=== PATIENT | female | born 1955 | race Two or more races ===

== ENCOUNTER 2024-08-21 19:19 | Inpatient (IN) | payer MEDICARE, SELFPAY ==
--- NOTE | 2024-08-21 19:30 | EKG_ITS ---
[facility] Test Date: 2024-08-21 Pat Name: ELENA MONROE Department: Room: - Gender: Female [employer]: : 1955 Requested By: ED Temporary Provider Order Number: [id number] Reading MD: ED Temporary Provider Measurements Intervals Marks Rate: 84 P: 51 CT: 108 QRS: 20 QRSD: 89 T: 58 QT: 390 QTc: 462 Interpretive Statements SINUS RHYTHM WITH SHORT CT INTERVAL No previous ECG available for comparison /store/S0/[id number]/ecg/[id number].pdf
[2024-08-21 19:44] VITALS: BP 159/83; PULSE 93; RESP 18; TEMP 36.9; O2SAT 95; BMI 36.7
--- NOTE | 2024-08-21 19:49 | XR_ITS ---
Examination: CT brain head without contrast. 2-D sagittal coronal reconstructions Date and time of exam:August 21, 2024 at 8:31 PM Comparison December 17, 2020 INDICATIONS: Stroke alert, onset focal neurologic deficit CTDI: vol (mGy):47 DLP: (mGycm):900 Technique: Multiple CT axial sections of the brain have been obtained, 5 mm slice thickness. Contrast has not been administered. 2-D sagittal, coronal reconstructions have been obtained Low dose protocols were performed. One or more of the following dose reduction techniques were used; automated exposure control, adjustment of the mA and/or KV according to patient size, use of iterative reconstruction technique. Findings: No significant ventricular enlargement. Intra-axial or extra-axial hemorrhage density is not seen. No mass effect or midline shift Basal cisterns are not remarkable. Fourth ventricle is midline. Cranial vault intact. Impression: Negative for acute hemorrhage, mass effect or midline shift I did not receive a telephone call on this study
--- NOTE | 2024-08-21 19:49 | XR_ITS ---
Examination: CTA carotids with intravenous contrast CTA brain, head with intravenous contrast. 2-D sagittal, coronal reconstructions. 3-D reconstructions. Exam date and time: September 17, 20242036 hours no examination time: September 17, 2024 at 203 hours INDICATIONS: Stroke alert altered mental status CTDI: vol (mGy) 10 DLP: (mGycm) 422 Technique: Multiple CTA axial brain, head carotid images post intravenous contrast injection 100 cc, Isovue-370. 2-D sagittal, coronal reconstructions. 3-D reconstructions, 3-D post processing including vascular maximum intensity projection images. Low dose protocols were performed. One or more of the following dose reduction techniques were used; automated exposure control, adjustment of the mA and/or KV according to patient size, use of iterative reconstruction technique. Findings: No significant common carotid carotid bifurcation internal carotid artery stenoses Dominant left vertebral artery in the neck with no critical stenoses Intracranial vertebral arteries artery posterior cerebral branches fill with no large vessel occlusions Juxtasellar internal carotid arteries M1 segment middle cerebral arteries middle cerebral artery trifurcation branches and anterior cerebral arteries fill with no occlusions IMPRESSION: No significant neck arterial stenoses No cerebral large vessel arterial occlusions or thrombus
--- NOTE | 2024-08-21 19:51 | EDRME_ITS ---
Rapid Medical Screening Exam [facility] Arrival date/time: 08/21/24 19:19 68F with history of HLD presents to ED with R-sided numbness and gait changes w/o fall/trauma. Patient states symptoms started around 1800 today. Patient was just sitting watching TV. Chief Complaint: General Adult/Misc Complain Vital signs: Vital Signs Temperature 98.4 F 08/21/24 19:44 Pulse Rate 93 08/21/24 19:44 Respiratory Rate 18 08/21/24 19:44 Blood Pressure 159/83 H 08/21/24 19:44 Pulse Oximetry (%) 95 08/21/24 19:44 Oxygen Delivery Method Room Air 08/21/24 19:44
[2024-08-21 20:19] LABS: Basophils % (Auto) 0 % (0-2.5); Eosinophils # (Auto) 0.2 Thou/mm3 (0.0-0.5); Eosinophils % (Auto) 2 % (0-10); Hematocrit 43.1 % (36.0-46.0); Hemoglobin 14.9 g/dL (12.0-16.0); Immature Granulocytes % (Auto) 0 % (0-0); Immature Granulocytes Auto 0.04 Thou/mm3 (0.00-0.00); Lymphocytes # (Auto) 3.5 Thou/mm3 (1.0-4.8); Lymphocytes % (Auto) 36 % (10-50); Mean Corpuscular HGB Conc 34.6 g/dl (31.0-37.0); Mean Corpuscular Volume 87 fL (80-100); Monocytes # (Auto) 0.7 Thou/mm3 (0.0-0.8); Monocytes % (Auto) 8 % (0-12); Neutrophils # (Auto) 5.1 Thou/mm3 (1.8-7.7); Neutrophils % (Auto) 53 % (37-80); Nucleated Red Blood Cell % 0 /100 WBC (0); Platelet Count 228 Thou/mm3 (140-440); RDW Standard Deviation 40.2 fL (36.4-46.3); Red Blood Count 4.97 Miln/mm3 (4.00-5.20); White Blood Count 9.6 Thou/mm3 (3.6-11.0)
[2024-08-21 20:20] LABS: Alanine Aminotransferase 24 U/L (10-49); Albumin, Serum 4.7 gm/dL (3.4-4.8); Albumin/Globulin Ratio 1.5 (1.2-2.2); Alkaline Phosphatase 148 U/L (46-116); Anion Gap 10 (7-16); Aspartate Amino Transferase 22 U/L (0-34); BUN/Creatinine Ratio 21 Ratio (12-20); Bilirubin,Total 0.6 mg/dL (0.3-1.2); Blood Urea Nitrogen 21 mg/dL (9-23); Calcium 9.9 mg/dL (8.3-10.6); Calcium (Corrected) 9.9 mg/dL (8.5-10.1); Carbon Dioxide 24.6 mMol/L (20.0-31.0); Chloride 108 mMol/L (98-107); Estimated Creatinine Clearance 52.9 mL/min (>60); Globulin 3.2 gm/dL (2.3-3.5); Glucose 111 mg/dL (74-106); Magnesium 2.2 mg/dL (1.6-2.6); Osmolality,Calculated 288 (275-295); Sodium 143 mMol/L (136-145); Total Protein 7.9 gm/dL (5.7-8.2); Troponin I < 0.020 ng/mL (0.0-0.045); eGFR > 60 See Note
--- NOTE | 2024-08-21 20:26 | EDNOTE_ITS ---
ED General RME/HPI General Chief complaint: General Adult/Misc Complain Stated complaint: RIGHT SIDE BODY NUMBNESS Time Seen by Provider: 08/21/24 20:34 Arrival date/time: 08/21/24 19:19 RME / HPI RME / HPI narrative: 08/21/24 19:19 68F with history of HLD presents to ED with R-sided numbness and gait changes w/o fall/trauma. Patient states symptoms started around 1800 today. Patient was just sitting watching TV. --------- Dr. Quintana?s Main ED Evaluation: 68yo female accompanied by her daughter presents to the ED for a chief complaint of right-sided facial numbness x 1800. Stroke alert initiated at 1947. Patient states she started having numbness to the right side of her face when she was watching TV. She reports it radiates down her right arm. She denies any recent falls or injuries. She denies any headache, dizziness, N/V or any other associated symptoms. No known allergies. Related Data Home Medications ?Medication ?Instructions ?Recorded ?Confirmed No Known Home Medications 12/17/2011/20 Allergies Allergy/AdvReac Type Severity Reaction Status Date / Time No Known Allergies Allergy Verified 12/17/20 00:13 Review of Systems Review of Systems Systems Reviewed: All systems reviewed, normal except as documented Past Medical History Past Medical History CARDIAC: Negative Congestive Heart Failure RESPIRATORY: Negative Chronic Obstructive Pulmonary Disease (COPD) GENITOURINARY: Negative Renal Disease ENDOCRINE: Negative Diabetes Mellitus Type 1 or Diabetes Mellitus Type 2 Social History SMOKING STATUS: Never smoker ED Exam Narrative Physical exam: GENERAL APPEARANCE: alert and oriented x 4, well-developed, well-nourished, no acute distress VITALS: All vitals were reviewed and the pulse ox is 95% on room air, which is normal according to my interpretation. HEENT: Normocephalic, atraumatic; pupils equal, round, reactive to light; EOMI; mucous membranes pink, moist; oropharynx clear NECK: Supple LUNGS: CTABL; no wheezes, no rales, no rhonchi HEART: Regular rate, regular rhythm; normal S1, S2; no murmurs ABDOMEN: non distended; normal BS; soft, no tenderness, no guarding, no rebound; no masses, no organomegaly, no hernia BACK: no CVA tenderness EXTREMITIES: atraumatic; no edema NEUROLOGIC: awake; alert and oriented x4; sensory deficits to the right face and arm; right facial droop PSYCHIATRIC: appropriate mood and affect SKIN: warm, dry, normal color; no rashes Course Quality Measures Suspected type of Stroke: Acute Ischemic Tenecteplase given: Reason(s) TPA not given: Stroke severity too mild (non-disabling) not given stroke Orders Category Date Time Status Bedside Blood Glucose NOW Care 08/21/24 19:49 Active Principal Technologist NOW Care 08/21/24 19:49 Active Continuous Pulse Oximetry NOW Care 08/21/24 19:49 Completed EKG (ED ONLY) *Do not use* NOW Care 08/21/24 19:30 Completed Fingerstick [Bedside Blood Glucose] NOW Care 08/21/24 19:28 Active In and Out Catheter NEEDED Care 08/21/24 19:49 Active Insert IV NOW Care 08/21/24 19:49 Active NIH Stroke Scale now Care 08/21/24 19:49 Active NPO NOW Care 08/21/24 19:49 Active Nurse Swallow Screen x1 Care 08/21/24 19:49 Active Consult to Neurology / Tele-Neurology Routine Cons 08/21/24 19:[address] angio stroke protocol Stat Exams 08/21/24 19:[address] stroke protocol Stat Exams 08/21/24 19:49 Completed EKG (ED Only) Stat Exams 08/21/24 19:30 Draft CBC Stat Lab 08/21/24 19:53 Completed Comprehensive Metabolic Panel Stat Lab 08/21/24 19:53 Completed Drug Screen,Urine Stat Lab 08/21/24 20:57 Completed Magnesium Stat Lab 08/21/24 19:53 Completed Partial Thromboplastin Time Stat Lab 08/21/24 19:53 Completed Prothrombin Time with INR Stat Lab 08/21/24 19:53 Completed Troponin I Stat Lab 08/21/24 19:53 Completed Urinalysis Stat Lab 08/21/24 20:57 Completed Urine Culture Stat Lab 08/21/24 20:57 Received Aspirin Med 08/21/24 21:23 Discontinued 325 mg PO X1 ONE Clopidogrel [Plavix] Med 08/21/24 21:23 Discontinued 75 mg PO X1 ONE Ondansetron Inj [Zofran Inj] Med 08/21/24 19:49 Active 4 mg IV Q4HR PRN Oxygen Delivery NOW RT 08/21/24 19:49 Active Vital Signs Vital signs: Vital Signs Temperature 98.4 F 08/21/24 19:44 Pulse Rate 93 08/21/24 19:44 Respiratory Rate 18 08/21/24 19:44 Blood Pressure 159/83 H 08/21/24 19:44 Pulse Oximetry (%) 95 08/21/24 19:44 Oxygen Delivery Method Room Air 08/21/24 19:44 [facility] Patient data External records reviewed:: [facility] previous records (Per chart review, patient was seen here on 12/17/20 for [facility].) Clinical information provided by:: patient Social determinants that could affect healthcare access:: none Patient has the following chronic illnesses:: none How is presenting disease/condition affected by chronic disease/condition?: no chronic disease Evaluation data The following diagnostics were reviewed and interpreted by me:: lab results, radiology exam(s) and EKG tracing(s) Lab and/or radiology exams considered but not ordered:: none Interpretation Summary: CBC is normal, PT and INR are normal, PTT is normal, troponin is normal, UA is unremarkable, UDS is negative, according to my interpretation. EKG done at 1941, NSR, rate of 84, normal axis, no ectopy, no acute ischemia, according to my interpretation. [facility] Report Signed Patient: ELENA MONROE Record#: [id number] Birthdate: 1955 Age/Sex: 68 / F Location: [facility] Attending Dr: Ordering Physician: Kali Jin PA-C Date of Service: 08/21/24 Procedure(s): CT stroke protocol Accession Number(s): [id number] cc: Garfield Rendon MD; Kali Jin PA-C~ Examination: CT brain head without contrast. 2-D sagittal coronal reconstructions Date and time of exam:August 21, 2024 at 8:31 PM Comparison December 17, 2020 INDICATIONS: Stroke alert, onset focal neurologic deficit CTDI: vol (mGy):47 DLP: (mGycm):900 Technique: Multiple CT axial sections of the brain have been obtained, 5 mm slice thickness. Contrast has not been administered. 2-D sagittal, coronal reconstructions have been obtained Low dose protocols were performed. One or more of the following dose reduction techniques were used; automated exposure control, adjustment of the mA and/or KV according to patient size, use of iterative reconstruction technique. Findings: No significant ventricular enlargement. Intra-axial or extra-axial hemorrhage density is not seen. No mass effect or midline shift Basal cisterns are not remarkable. Fourth ventricle is midline. Cranial vault intact. Impression: Negative for acute hemorrhage, mass effect or midline shift I did not receive a telephone call on this study Dictated By: Garfield Rendon MD Signed By: <Electronically signed by Garfield Rendon MD in OV> 08/21/242052 [facility] Report Signed Patient: ELENA MONROE Record#: [id number] Birthdate: 1955 Age/Sex: 68 / F Location: [facility] Attending Dr: Ordering Physician: Kali Jin PA-C Date of Service: 08/21/24 Procedure(s): CT angio stroke protocol Accession Number(s): [id number] cc: Garfield Rendon MD; NO PRIMARY/FAMILY,PHYSICIAN; Kali Jin PA-C~ Examination: CTA carotids with intravenous contrast CTA brain, head with intravenous contrast. 2-D sagittal, coronal reconstructions. 3-D reconstructions. Exam date and time: September 17, 20242036 hours no examination time: September 17, 2024 at 2037 hours INDICATIONS: Stroke alert altered mental status CTDI: vol (mGy) 10 DLP: (mGycm) 422 Technique: Multiple CTA axial brain, head carotid images post intravenous contrast injection 100 cc, Isovue-370. 2-D sagittal, coronal reconstructions. 3-D reconstructions, 3-D post processing including vascular maximum intensity projection images. Low dose protocols were performed. One or more of the following dose reduction techniques were used; automated exposure control, adjustment of the mA and/or KV according to patient size, use of iterative reconstruction technique. Findings: No significant common carotid carotid bifurcation internal carotid artery stenoses Dominant left vertebral artery in the neck with no critical stenoses Intracranial vertebral arteries artery posterior cerebral branches fill with no large vessel occlusions Juxtasellar internal carotid arteries M1 segment middle cerebral arteries middle cerebral artery trifurcation branches and anterior cerebral arteries fill with no occlusions IMPRESSION: No significant neck arterial stenoses No cerebral large vessel arterial occlusions or thrombus Dictated By: Garfield Rendon MD Signed By: <Electronically signed by Garfield Rendon MD in OV> 08/21/24 9779 Medications Medications considered but not ordered:: none Medication administrations:: Medication Administration History Ondansetron HCl (Ondansetron Inj 2 Mg/Ml Inj 2 Ml) 4 mg IV Q4HR PRN PRN Reason: NAUSEA OR VOMITING Stop: 09/20/24 19:48 Discontinued Medications Aspirin (Aspirin 325 Mg Tablet) 325 mg PO X1 ONE Stop: 08/21/24 21:24 Last Admin: 08/21/24 21:44 Dose: 325 mg Documented By: CB Clopidogrel Bisulfate (Clopidogrel Bisulfate 75 Mg Tablet) 75 mg PO X1 ONE Stop: 08/21/24 21:24 Last Admin: 08/21/24 21:44 Dose: 75 mg Documented By: CB see above Consultations Consultation(s) initiated? (list below): Yes Consultation #1 (Physician, Specialty, Details): See MDM. Diagnosis Differential Diagnosis ED Complaint MDM: hurt's palsy, ischemic CVA, hemorrhagic CVA, TIA Most likely diagnosis given after review of the tests above:: see clinical impression below Admission Indicated Admission indicated?: indicated Explain why admission is indicated or not indicated:: Admission criteria met. Admission Request Was there a request for admission?: Yes Admission Attestation Admission request attestation: Discussed case with [] from Hospitalist service regarding admission. Discussed patients ED course, exam findings, labs, and radiology results. The Hospitalist [agrees,declines] to accept the patient for admission. Disposition Plan Disposition Plan: Admit Medical Decision Making [facility] Narrative [facility] Narrative: Scribe Attestation: 08/21/24 - Elo Flores am scribing for and in the presence of Dr. Quintana. Stroke alert initiated at 1947. Orders placed. At 1729, I was notified that our CT machine is down. Patient will be transferred by ambulance across the street where there is another CT machine. I had asked our medical and health services manager to call administration and go on diversion and he said no. It is unknown when the patient will be able to get her CT scans done. Patient started having symptoms at 1800 and is within the window for tPA if needed. 2052: Patient is back from CT and is placed in a room. Teleneurology is evaluating the patient. 2113: Discussed case with Dr. Robert from teleneurology regarding consultation. Discussed patients ED course, exam findings, labs, and radiology results. States the patient's NIHSS is 1, therefore, the patient is not a tPA candidate. Recommends admitting the patient for stroke work-up, and giving her aspirin and Plavix. 2119: Discussed case with Dr. Haynes, attending Dr. Maxwell from Hospitalist service regarding admission. Discussed patients ED course, exam findings, labs, and radiology results. The Hospitalist [agrees] to accept the patient for admission. Differential Diagnosis Differential Diagnosis: hurt's palsy, ischemic CVA, hemorrhagic CVA, TIA Lab Data 08/21/24 19:53 08/21/24 19:53 Labs: Lab Results 08/21/24 08/21/24 Range/Units 19:53 20:57 WBC 9.6 (3.6-11.0) Thou/mm3 RBC 4.97 (4.00-5.20) Miln/mm3 Hgb 14.9 (12.0-16.0) g/dL Hct 43.1 (36.0-46.0) % MCV 87 (80-100) fL MCH 30.0 (25.0-35.0) pg MCHC 34.6 (31.0-37.0) g/dl RDW Std Deviation 40.2 (36.4-46.3) fL Plt Count 228 (140-440) Thou/mm3 Neut % (Auto) 53 (37-80) % Lymph % (Auto) 36 (10-50) % [place] % (Auto) 8 (0-12) % Eos % (Auto) 2 (0-10) % Baso % (Auto) 0 (0-2.5) % Neut # (Auto) 5.1 (1.8-7.7) Thou/mm3 Lymph # (Auto) 3.5 (1.0-4.8) Thou/mm3 [place] # (Auto) 0.7 (0.0-0.8) Thou/mm3 Eos # (Auto) 0.2 (0.0-0.5) Thou/mm3 Baso # (Auto) 0.0 (0.0-0.2) Thou/mm3 Immature Gran # (Auto) 0.04 H (0.00-0.00) Thou/mm3 Absolute Nucleated RBC 0.00 (0.00-0.00) Thou/mm3 Immature Gran % 0 (0-0) % Nucleated RBC % 0 (0) /100 WBC PT 10.9 (9.0-12.2) Seconds INR 1.0 (0.9-1.3) APTT 25.7 (22.0-36.0) Seconds Sodium 143 (136-145) mMol/L Potassium 4.0 (3.4-5.1) mMol/L Chloride 108 H (98-107) mMol/L Carbon Dioxide 24.6 (20.0-31.0) mMol/L Anion Gap 10 (7-16) BUN 21 (9-23) mg/dL Creatinine 1.0 (0.6-1.3) mg/dL Estim Creat Clear Calc 52.9 L (>60) mL/min eGFR > 60 (60 - ) See Note BUN/Creatinine Ratio 21 H (12-20) Ratio Glucose 111 H (74-106) mg/dL Calculated Osmolality 288 (275-295) Calcium 9.9 (8.3-10.6) mg/dL Corrected Calcium 9.9 (8.5-10.1) mg/dL Magnesium 2.2 (1.6-2.6) mg/dL Total Bilirubin 0.6 (0.3-1.2) mg/dL AST 22 (0-34) U/L ALT 24 (10-49) U/L Alkaline Phosphatase 148 H (46-116) U/L Troponin I < 0.020 (0.0-0.045) ng/mL Total Protein 7.9 (5.7-8.2) gm/dL Albumin 4.7 (3.4-4.8) gm/dL Globulin 3.2 (2.3-3.5) gm/dL Albumin/Globulin Ratio 1.5 (1.2-2.2) Ur Collection Type Clean Catch Urine Color Colorless A (Lt Yel-Yel) Urine Clarity Clear (Clear/Hazy) Urine pH 6.5 (5.0-7.0) Ur Specific [place] 1.012 (1.001-1.035) Urine Protein Negative (Neg - Trace) Urine Glucose (UA) Negative (Negative) Urine Ketones Negative (Negative) Urine Blood Negative (Negative) Urine Nitrite Negative (Negative) Urine Bilirubin Negative (Negative) Urine Urobilinogen (Auto) Negative (0.0-1.0) mg/dL Ur Leukocyte Esterase Negative (Negative) Urine RBC < 1 (0-3) /hpf Urine WBC 2 (0-5) /hpf Ur Squamous Epith Cells 1 (0-5) /hpf Urine Bacteria None (None) Urine Opiates Screen Negative (Negative) Urine Fentanyl Screen Negative (Negative) Ur Barbiturates Screen Negative (Negative) U Amphetamin/Meth Scrn Negative (Negative) U Benzodiazepines Scrn Negative (Negative) U Cocaine Metab Screen Negative (Negative) U Marijuana (THC) Screen Negative (Negative) Critical Care Time Critical Care Time Critical Care Time: Yes Total Critical Care Time (min.): 60 Attestation: The high probability of sudden, clinically significant deterioration in the patient?s condition required the highest level of my preparedness to intervene urgently. The services I provided to this patient were to treat and/or prevent clinically significant deterioration. Services included the following: chart data review, reviewing nursing notes and/or old charts, documentation time, organizational effectiveness consultant collaboration regarding findings and treatment options, medication orders and management, direct patient care, vital sign assessments and ordering, interpreting and reviewing diagnostic studies and lab tests. Aggregate critical care time includes only time during which I was engaged in work directly related to the patient?s care, as described above, whether at bedside or elsewhere in the Emergency Department. It did not include time spent performing other reported procedures or the services of residents, students, nurses or physician assistants. Discharge Plan Plan Patient Disposition: Admit Acute Care w/in Hospital Disposition Comment: Admitted to Dr. Haynes, attending Dr. Maxwell Prescriptions/Referrals Prescriptions/Med Rec: No Action No Known Home Medications Referrals: No Primary/Family,Physician [Primary Care Provider] - In 1 week Problem List Clinical Impression: Ischemic cerebrovascular accident (CVA) Patient/Caregiver Discharge Instructions Print Language: Divehi Stand Alone Forms: Susie Award Info., Patient Portal Info Letter
[2024-08-21 20:28] LABS: Partial Thromboplastin Time 25.7 Seconds (22.0-36.0); Prothrombin Time 10.9 Seconds (9.0-12.2)
--- NOTE | 2024-08-21 20:47 | PC.NURSE ---
Case # [id number] for tele neuro
[2024-08-21 20:56] VITALS: PULSE 90
[2024-08-21 20:59] VITALS: BP 159/75; PULSE 90; RESP 17; TEMP 36.6; O2SAT 97
--- NOTE | 2024-08-21 21:00 | PC.NURSE ---
Dr. Robert from [employer] to consult at 2055. Per provider he will call ER providers to consult with them for treatment.
[2024-08-21 21:06] LABS: Collection Type, Urine Clean Catch
[2024-08-21 21:13] LABS: Bilirubin,Urine Negative (Negative); Blood,Urine Negative (Negative); Clarity,Urine Clear (Clear/Hazy); Color,Urine Colorless (Lt Yel-Yel); Glucose, Urine Negative (Negative); Ketones,Urine Negative (Negative); Leukocyte Esterase,Urine Negative (Negative); Nitrite,Urine Negative (Negative); PH,Urine 6.5 (5.0-7.0); Protein,Urine Negative (Neg - Trace); RBC,Urine < 1 /hpf (0-3); Specific Gravity,Urine 1.012 (1.001-1.035); Squamous Epithelial Cell,Urine 1 /hpf (0-5); Urobilinogen,Urine Negative mg/dL (0.0-1.0); WBC,Urine 2 /hpf (0-5)
--- NOTE | 2024-08-21 21:18 | ESCONSULT_ITS ---
Tele Neuro Consultation Consultation Date 08/21/24 Most Recent Vital Signs Last Vital Signs Temp 97.9 F 08/21/24 20:59 Pulse 90 08/21/24 20:59 Resp 17 08/21/24 20:59 BP 159/75 H 08/21/24 20:59 Pulse Ox 97 08/21/24 20:59 O2 Del Method Room Air 08/21/24 20:59 Laboratory-Coagulation Panel PT 10.9 Seconds (9.0-12.2) 08/21/24 19:53 INR 1.0 (0.9-1.3) 08/21/24 19:53 APTT 25.7 Seconds (22.0-36.0) 08/21/24 19:53 Consultation Narrative [facility] TeleNeurology Consult Services Patient Name:???Olinda Rosales Date of :???1955 Identification Number:??? Date of Service:???08/21/2024 20:46:55 Diagnosis:?R20.2 - Paresthesia of skin Impression: ?Patient is a 68 year old, reports LKN at 1700 PST today. Then around 1800 PST developed right side of face numbness. She reports tingling and numbness to right hand and leg. Patient denies dizziness, speech changes, nor weakness. Reports PMH of HLD. Not on ASA nor blood thinner medications. ? ?NIHSS 1 for mild right sided sensory decreased sensation. CT head was performed and reviewed. No acute findings. ? ?The patient was not a candidate for IV thrombolytics due to no current disabling deficits per patient/mild deficits. ? ?Recommend further stroke workup as below. Our recommendations are outlined below. Recommendations: ? Stroke/Telemetry Floor ? Neuro Checks ? Bedside Swallow Eval ? DVT Prophylaxis ? IV Fluids, Normal Saline ? Head of Bed 30 Degrees ? Euglycemia and Avoid Hyperthermia (PRN Acetaminophen) ? Bolus with Clopidogrel 300 mg bolus x1 and initiate dual antiplatelet therapy with Aspirin 81 mg daily and Clopidogrel 75 mg daily ? Antihypertensives PRN if Blood pressure is greater than 220/120 or there is a concern for End organ damage/contraindications for permissive HTN. If blood pressure is greater than 220/120 give labetalol PO or IV or Vasotec IV with a goal of 15% reduction in BP during the first 24 hours. ?CTA head and neck pending ?MRI head without contrast ?KAYLEE echo ?Statin Sign Out: ? Discussed with Emergency Department Provider Advanced Imaging:Advanced imaging has been ordered. Results pending. Metrics: Last Known Well: 08/21/2024 17:00:00 Dispatch Time: 08/21/2024 20:46:55 Arrival Time: 08/21/2024 19:22:00 Initial Response Time: 08/21/2024 20:53:57Symptoms: right sided weakness. Initial patient interaction: 08/21/2024 20:54:26 NIHSS Assessment Completed: 08/21/2024 21:02:51Patient is not a candidate for Thrombolytic. Thrombolytic Medical Decision: 08/21/2024 21:02:56Patient was not deemed candidate for Thrombolytic because of following reasons: Stroke severity too mild (non-disabling) . CT head showed no acute hemorrhage or acute core infarct. I personally Reviewed the CT Head and it Showed Primary Provider Notified of Diagnostic Impression and Management Plan on: 08/21/2024 21:16:06 History of Present Illness:Patient is a 68 year old Female. Patient was brought by private transportation with symptoms of right sided weakness. Patient is a 68 year old, reports LKN at 1700 PST today. Then around 1800 PST deve TTloped right side of face numbness. She reports tingling and numbness to right hand and leg. Patient denies dizziness, speech changes, nor weakness. Reports PMH of HLD. Not on ASA nor blood thinner medications. ? Past Medical History: ?Hyperlipidemia ?There is no history of Diabetes Mellitus ?There is no history of Stroke Medications: No Anticoagulant use? No Antiplatelet use Reviewed EMR for current medications Allergies:? Reviewed Social History: Drug Use: No Family History: There is no family history of premature cerebrovascular disease pertinent to this consultation ROS : 14 Points Review of Systems was performed and was negative except mentioned in HPI. Past Surgical History: There Is No Surgical History Contributory To Today?s Visit ? Examination: BP(159/75),?Pulse(89), 1A: Level of Consciousness - Alert; keenly responsive?+ 0 1B: Ask Month and Age - Both Questions Right?+ 0 1C: Blink Eyes & Squeeze Hands - Performs Both Tasks?+ 0 2: Test Horizontal Extraocular Movements - Normal?+ 0 3: Test Visual Barros - No Visual Loss?+ 0 4: Test Facial Palsy (Use Grimace if Obtunded) - Normal symmetry?+ 0 5A: Test Left Arm Motor Drift - No Drift for 10 Seconds?+ 0 5B: Test Right Arm Motor Drift - No Drift for 10 Seconds?+ 0 6A: Test Left Leg Motor Drift - No Drift for 5 Seconds?+ 0 6B: Test Right Leg Motor Drift - No Drift for 5 Seconds?+ 0 7: Test Limb Ataxia (FNF/Heel-Tate) - No Ataxia?+ 0 8: Test Sensation - Mild-Moderate Loss: Less Sharp/More Dull?+ 1 9: Test Language/Aphasia - Normal; No aphasia?+ 0 10: Test Dysarthria - Normal?+ 0 11: Test Extinction/Inattention - No abnormality?+ 0 NIHSS Score:?1 NIHSS Free Text :?right sided mild sensory decreased Pre-Morbid Modified Ruddy Scale:0 Points = No symptoms at all Spoke with :?Dr. Quintana This consult was conducted in real time using interactive audio and video technology. Patient was informed of the technology being used for this visit and agreed to proceed. Patient located in hospital and provider located at home/office setting. Patient is being evaluated for possible acute neurologic impairment and high probability of imminent or life-threatening deterioration. I spent total of 30 minutes providing care to this patient, including time for face to face visit via telemedicine, review of medical records, imaging studies and discussion of findings with providers, the patient and/or family. Dr Yazan Robert [facility] For Inpatient follow-up with [facility] physician please call [facility] at . As we are not an outpatient service for any post hospital discharge needs please contact the hospital for assistance. If you have any questions for the [facility] physicians or need to reconsult for clinical or diagnostic changes please contact us via [facility] at . ?
[2024-08-21 21:20] LABS: Amphetamine/Methamp Scrn,U Negative (Negative); Barbiturate Screen,Urine Negative (Negative); Benzodiazepines Screen,Urine Negative (Negative); Benzoylecgonine Screen, Ur Negative (Negative); Fentanyl Screen,Urine Negative (Negative); Opiate Screen,Urine Negative (Negative); THC Screen,Urine Negative (Negative)
[2024-08-21] MEDS: CLOPIDOGREL BISULFATE 75 MG TABLET PO (21:44)
[2024-08-21] MEDS: Aspirin 325 MG TABLET PO (21:44)
[2024-08-21 21:46] VITALS: BP 158/55; PULSE 20; RESP 16; TEMP 36.8; O2SAT 97
--- NOTE | 2024-08-21 22:04 | PD.TNEURO ---
Tele Neuro Consultation Consultation Date 08/21/24 Most Recent Vital Signs Last Vital Signs Temp 98.2 F 08/21/24 21:46 Pulse 20 L 08/21/24 21:46 Resp 16 08/21/24 21:46 BP 158/55 H 08/21/24 21:46 Pulse Ox 97 08/21/24 21:46 O2 Del Method Room Air 08/21/24 21:46 Laboratory-Coagulation Panel PT 10.9 Seconds (9.0-12.2) 08/21/24 19:53 INR 1.0 (0.9-1.3) 08/21/24 19:53 APTT 25.7 Seconds (22.0-36.0) 08/21/24 19:53 Consultation Narrative Advanced Imaging: CTA Head and Neck Completed. LVO:No
[2024-08-21 22:09] VITALS: BP 146/91; PULSE 89; RESP 19; TEMP 36.5; O2SAT 96
--- NOTE | 2024-08-21 23:45 | ESHP_ITS ---
Documentation for date of: 08/21/24 [facility] History of Present Illness History of present illness: The patient is a 68-year-old female with significant past medical history of hyperlipidemia presented to ED after developing right-sided facial tingling around 6 PM on 08/21/2024. She was brought by her daughter, and she also reported that she started limping on her right leg. She denied any headache, chest pain, SOB, abdominal pain, any changes in bowel or bladder habits, nausea or vomiting, fever or chills, any blurry vision. In the ED her vitals were significant for blood pressure 159/83, with other vitals WNL. CBC WNL, CMP revealed chloride 108, BUN 21, blood sugar 111, UA and U tox negative, EKG revealed sinus rhythm with short OH interval, head CT negative for acute hemorrhage, mass effect or midline shift, head/neck CTA revealed no significant neck arterial stenosis or cerebral large vessel arterial occlusion or thrombus. Teleneurology consultation was done and NIHSS score was 1 because of mild decrease in right-sided facial sensation, and recommended aspirin and Plavix 325 mg and 300 mg respectively and starting on atorvastatin. Due to low NIHSS score of 1, he recommended not to proceed with tPA. PMH: As mentioned above SHX: Unremarkable Family history: Unremarkable Social history: Social drinker, denies smoking or any illicit drug use Medications: Atorvastatin Allergies: No known allergies Review of Systems Review of Systems Systems Reviewed: All systems reviewed, normal except as documented Exam Vital Signs Temp Pulse Resp BP Pulse Ox O2 Del Method 97.7 F 89 19 146/91 H 96 Room Air 08/21/24 22:09 08/21/24 22:09 08/21/24 22:09 08/21/24 22:09 08/21/24 22:09 08/21/24 22:09 Narrative Exam General: Elderly cooperative female, no acute distress, Alert and Oriented x 3 HEENT: Moist mucous membranes, oropharynx clear Neck: Supple, No masses, No JVD CVS: S1S2 Regular rate and rhythm, No murmurs, rubs or gallops Lungs: Clear to auscultation with no accessory use, no wheeze no rhonchi Abd: Soft, NT/ND, +BS, no organomegaly Ext: No edema, warm and well perfused Skin: No rash Neuro: Decreased sensation over right lower face, right lower face drooping, 4/5 motor strength on right lower extremity Psych: Appropriate mood and affect Results: Labs 08/22/24 05:00 08/22/24 05:00 Labs: Short CBC 08/21/24 Range/Units 19:53 WBC 9.6 (3.6-11.0) Thou/mm3 Hgb 14.9 (12.0-16.0) g/dL Hct 43.1 (36.0-46.0) % Plt Count 228 (140-440) Thou/mm3 BMP 08/21/24 19:53 Sodium 143 Potassium 4.0 Chloride 108 H Carbon Dioxide 24.6 BUN 21 Creatinine 1.0 Glucose 111 H Calcium 9.9 Cardiac Enzymes 08/21/24 Range/Units 19:53 Troponin I < 0.020 (0.0-0.045) ng/mL Liver Function 08/21/24 Range/Units 19:53 Total Bilirubin 0.6 (0.3-1.2) mg/dL AST 22 (0-34) U/L ALT 24 (10-49) U/L Alkaline Phosphatase 148 H (46-116) U/L Albumin 4.7 (3.4-4.8) gm/dL Urine 08/21/24 Range/Units 20:57 Urine Color Colorless A (Lt Yel-Yel) Urine Clarity Clear (Clear/Hazy) Urine pH 6.5 (5.0-7.0) Ur Specific [place] 1.012 (1.001-1.035) Urine Protein Negative (Neg - Trace) Urine Glucose (UA) Negative (Negative) Quality Measures Quality Measures stroke Suspected type of Stroke: Acute Ischemic Tenecteplase given: Reason(s) Tenecteplase not given: Stroke severity too mild (non-disabling) not given Rehab services: PT evaluation ordered and Speech Language Pathology eval ordered VTE Prophylaxis: pharmaceutical Antithrombotic by day 2:: not indicated (describe) Statin ordered: <75 y/o high intensity dose Anticoagulation ordered for A-fib or flutter (current or hx): not indicated Advance care planning discussed with:: patient and child Medications Home Medications and Allergies Home Medications ?Medication ?Instructions ?Recorded ?Confirmed ?Type lovastatin See Rx Instructions PO QDAY 08/22/24 08/22/24 History Allergies Allergy/AdvReac Type Severity Reaction Status Date / Time No Known Allergies Allergy Verified 08/22/24 01:28 Visit Medications Acetaminophen (Acetaminophen 325 Mg Tablet) 650 mg PO Q6H PRN PRN Reason: Fever >101.5 Stop: 09/20/24 23:32 Acetaminophen (Acetaminophen 325 Mg Tablet) 650 mg PO Q6H PRN PRN Reason: PAIN SCALE 1-3 (mild Stop: 09/20/24 23:32 Aspirin (Aspirin Ec 81 Mg Tabec) 81 mg PO HS AYESHA Stop: 09/21/24 20:59 Atorvastatin Calcium (Atorvastatin Calcium 10 Mg Tablet) 80 mg PO HS AYESHA Stop: 09/20/24 23:39 Clopidogrel Bisulfate (Clopidogrel Bisulfate 75 Mg Tablet) 225 mg PO X1 ONE Stop: 08/21/24 23:40 Clopidogrel Bisulfate (Clopidogrel Bisulfate 75 Mg Tablet) 75 mg PO QDAY AYESHA Stop: 09/21/24 08:59 Heparin Sodium (Porcine) (Heparin Sod Inj 5000 Unit/Ml Vial) 5,000 unit SC Q8HR AYESHA Stop: 09/05/24 05:59 Ondansetron HCl (Ondansetron Inj 2 Mg/Ml Inj 2 Ml) 4 mg IV Q4HR PRN PRN Reason: NAUSEA OR VOMITING Stop: 09/20/24 19:48 Pantoprazole Sodium (Pantoprazole 40 Mg Tablet) 40 mg PO QDAY AYESHA Stop: 09/21/24 08:59 Discontinued Medications Aspirin (Aspirin 325 Mg Tablet) 325 mg PO X1 ONE Stop: 08/21/24 21:24 Last Admin: 08/21/24 21:44 Dose: 325 mg Clopidogrel Bisulfate (Clopidogrel Bisulfate 75 Mg Tablet) 75 mg PO X1 ONE Stop: 08/21/24 21:24 Last Admin: 08/21/24 21:44 Dose: 75 mg Assessment & Plan Plan The patient is a 68-year-old female with significant past medical history of hyperlipidemia presented to ED after developing right-sided facial tingling around 6 PM on 08/21/2024. Due to low NIHSS score of 1, he recommended not to proceed with tPA. #CVA DDx: Ischemic stroke, if the symptoms does not resolve for 24-hour x 6 p.m. tomorrow or if MRI brain reveals any ischemic lesions Patient presented with right facial weakness, and tingling; including right leg limping around 6 PM on 08/21/[address] negative for acute hemorrhage, mass effect or midline shift, head/neck CTA revealed no significant neck arterial stenosis or cerebral large vessel arterial occlusion or thrombus. Patient did not receive tPA due to NIHSS score of 1, but during my evaluation NIHSS score was 3 with mild decreased sensation over right face and right lower face drooping; and right lower limb strength of 4/5, and risk out-weights the benefit of giving tPA Received aspirin and clopidogrel 325 mg x 1 and 300 mg x 1 respectively - Continue on aspirin 81 Mg daily - Continue on clopidogrel 75 Mg daily - Started on atorvastatin 80 Mg daily - Ordered MR stroke protocol - Neurologist Dr. Fulton consulted, appreciate reccs - Ordered TTE with bubble study - Lipid panel, A1c and TSH ordered - Daily AM lab for CBC, CMP and electrolytes - Head of bed elevated to 30 degrees, neurochecks every 4 hourly - Ordered PT and speech eval - Continue to monitor closely #Hyperlipidemia Patient reported that she has history of hyperlipidemia - Started on atorvastatin 80 Mg daily - Ordered lipid panel for a.m. labs Health maintenance: Dispo: Patient admitted to telemetry unit for further management of TIA versus ischemic stroke Diet: Cardiac diet as patient passed swallow eval DVT prophylaxis: Subcu heparin CODE STATUS: Full code The patient's management plan was discussed with my attending physician MD Chuck Loyola MD, PGY2 Attending Provider Attestation/Addendum I attest that I was physically present for the evaluation, physical examination, lab and imaging review of the patient with the residents. I discussed the case with the residents and agree with the findings and plans of care as documented above. Patient is a 68 years old female with past medical history of hyperlipidemia who presented to the ED with complaint of right-sided facial tingling. The daughter also stated that patient started limping on her right leg. Patient denied headache, chest pain, shortness of breath, abdominal pain or bowel or bladder changes at the time of examination. She has decreased sensation over right face on exam, also noted to have drooping of right face. Patient is alert and oriented, able to answer questions and follow commands appropriately. In the ED, she had a blood pressure of 159/83 on presentation. Stroke alert was called, teleneuro was consulted, recommended against tPA as her NIH score was only 1. We will admit the patient for CVA workup. We will start her on aspirin, as clopidogrel, atorvastatin. We will obtain MRI and in-house neurology consult. Ordered lipid panel, A1c, TSH. Anup Maxwell MD
[2024-08-21 23:53] VITALS: BP 144/80; PULSE 73; RESP 16; TEMP 36.7; O2SAT 96
[2024-08-22] VITALS (9 sets, daily range): BP systolic 116–130; BP diastolic 63–76; PULSE 67–86; RESP 17–21; TEMP 35.9–36.7; O2SAT 94–97; BMI 27.2; BMI 27.3
--- NOTE | 2024-08-22 | XR_ITS ---
Examinations: MRI Brain without intravenous contrast. MRA brain without intravenous contrast. MRA carotids without intravenous contrast 3-D vascular reconstructions Date and time of exam: August 22, 2024 0941 hours INDICATIONS: Stroke alert yesterday, onset focal neurologic deficit, right-sided facial paresthesias right leg weakness Technique: Multiple axial and sagittal images of the brain have been obtained MRA brain carotid images without contrast obtained, including 3-D postprocessing, vascular maximum intensity projection images Findings: Sellaturcica is not enlarged. The optic chiasm and infundibular stalk are not remarkable. Prepontine and interpeduncular cisterns are not enlarged. No localized enlargement of the medulla or abdi. Fourth ventricle and cerebellar tonsils normal in position. Subacute hemorrhage is not seen. Fourth ventricle is midline. Mass in the cerebellopontine angle region is not evident. 7th and 8th nerve complexes exhibits symmetry. Globes are symmetrical with no retro-orbital mass. Increased white matter signal moderate Diffusion-weighted images demonstrate 7 mm focus restricted diffusion left thalamus Mass-effect upon the ventricular system is not identified. MRA carotid images no significant carotid stenoses. MRA brain images no cerebral large vessel arterial occlusions Impression: 7 mm acute infarct left thalamus
[2024-08-22] MEDS: CLOPIDOGREL BISULFATE 75 MG TABLET 225 MG PO (00:29)
[2024-08-22 05:38] LABS: Basophils % (Auto) 1 % (0-2.5); Eosinophils # (Auto) 0.1 Thou/mm3 (0.0-0.5); Eosinophils % (Auto) 1 % (0-10); Hematocrit 40.4 % (36.0-46.0); Hemoglobin 13.8 g/dL (12.0-16.0); Immature Granulocytes % (Auto) 0 % (0-0); Immature Granulocytes Auto 0.03 Thou/mm3 (0.00-0.00); Lymphocytes # (Auto) 2.5 Thou/mm3 (1.0-4.8); Lymphocytes % (Auto) 31 % (10-50); Mean Corpuscular HGB Conc 34.2 g/dl (31.0-37.0); Mean Corpuscular Volume 88 fL (80-100); Monocytes # (Auto) 0.5 Thou/mm3 (0.0-0.8); Monocytes % (Auto) 7 % (0-12); Neutrophils # (Auto) 4.9 Thou/mm3 (1.8-7.7); Neutrophils % (Auto) 61 % (37-80); Nucleated Red Blood Cell % 0 /100 WBC (0); Platelet Count 201 Thou/mm3 (140-440); RDW Standard Deviation 41.1 fL (36.4-46.3); White Blood Count 8.1 Thou/mm3 (3.6-11.0)
[2024-08-22 06:05] LABS: Glucose Estimated Average 114 mg/dL (80-131); Hemoglobin A1C 5.6 % Hgb (4.8-6.0)
[2024-08-22] MEDS: HEPARIN SOD INJ 5000 UNIT/ML VIAL SC ×3 (06:26→21:03)
[2024-08-22 06:28] LABS: Alanine Aminotransferase 20 U/L (10-49); Albumin, Serum 4.2 gm/dL (3.4-4.8); Albumin/Globulin Ratio 1.4 (1.2-2.2); Alkaline Phosphatase 129 U/L (46-116); Anion Gap 11 (7-16); Aspartate Amino Transferase 19 U/L (0-34); BUN/Creatinine Ratio 20 Ratio (12-20); Bilirubin,Total 0.8 mg/dL (0.3-1.2); Blood Urea Nitrogen 16 mg/dL (9-23); Calcium 9.5 mg/dL (8.3-10.6); Calcium (Corrected) 9.5 mg/dL (8.5-10.1); Carbon Dioxide 23.2 mMol/L (20.0-31.0); Cardiac Risk Estimate 4.6 RATIO (3.7-5.6); Chloride 110 mMol/L (98-107); Cholesterol 133 mg/dL (132-200); Creatinine (Component) 0.8 mg/dL (0.6-1.3); Estimated Creatinine Clearance 56.7 mL/min (>60); Globulin 2.9 gm/dL (2.3-3.5); Glucose 114 mg/dL (74-106); HDL Cholesterol 29 mg/dL (40-60); LDL Cholesterol,Calculated 81 mg/dL (0-130); Magnesium 2.3 mg/dL (1.6-2.6); Osmolality,Calculated 289 (275-295); Phosphorous 3.7 mg/dL (2.4-5.1); Sodium 144 mMol/L (136-145); Total Protein 7.1 gm/dL (5.7-8.2); Triglycerides 115 mg/dL (30-150); eGFR > 60 See Note
[2024-08-22] MEDS: PANTOPRAZOLE 40 MG TABLET PO (08:09)
[2024-08-22] MEDS: CLOPIDOGREL BISULFATE 75 MG TABLET PO (08:09)
--- NOTE | 2024-08-22 09:07 | PC.SS ---
Follow up note: Neuro consulting. MRI & Echo pending.
--- NOTE | 2024-08-22 10:17 | ESPR_ITS ---
<Statement entered by Giuliana Gama MD - 08/31/24 15:11> I reviewed above note and agree with findings and plans. I have also personally examined the patient with medicine team and went over assessment and plan with medical team including wildlife biology internship and resident physician. <Statement entered by Pedro Kenny MD - 08/22/24 14:16> I discussed with and supervised the wildlife biology internship physician involved in the care of this patient. Patient assessment and plan was discussed with entire medicine team, including my attending. I agree with the assessment and plan as documented by wildlife biology internship doctor. Patient care was discussed with my attending physician Dr. Lanette Kenny, PGY-2 Documentation for date of: 08/22/24 Subjective Subjective Interval history: Patient seen and examined at bedside. Patient's vitals and labs reviewed. Patient still have right-sided facial droop, reports improved strength, denies any paresthesias currently. Patient's hemoglobin A1c is 5.6, TSH limits 0.9 and lipid panel shows LDL 81, cholesterol 133. MRI Brain shows 7 mm acute infarct left thalamus Patient is pending echocardiogram, physical therapy and neurology recommendations. Exam Vital Signs Temp Pulse Resp BP Pulse Ox O2 Del Method 98.1 F 72 21 H 129/74 96 Room Air 08/22/24 07:57 08/22/24 08:00 08/22/24 07:57 08/22/24 07:57 08/22/24 07:57 08/22/24 07:57 Narrative Exam General: Elderly cooperative female, no acute distress, Alert and Oriented x 3 HEENT: Moist mucous membranes, oropharynx clear Neck: Supple, No masses, No JVD CVS: S1S2 Regular rate and rhythm, No murmurs, rubs or gallops Lungs: Clear to auscultation with no accessory use, no wheeze no rhonchi Abd: Soft, NT/ND, +BS, no organomegaly Ext: No edema, warm and well perfused Skin: No rash Neuro: Alert and oriented x 3, right-sided facial droop, patient able to move all extremities Psych: Appropriate mood and affect Objective Labs 08/22/24 05:00 08/22/24 05:00 Labs: Laboratory Results - last 24 hr 08/21/24 08/21/24 08/22/24 19:53 20:57 05:00 WBC 9.6 8.1 RBC 4.97 4.60 Hgb 14.9 13.8 Hct 43.1 40.4 MCV 87 88 MCH 30.0 30.0 MCHC 34.6 34.2 RDW Std Deviation 40.2 41.1 Plt Count 228 201 Neut % (Auto) 53 61 Lymph % (Auto) 36 31 [place] % (Auto) 8 7 Eos % (Auto) 2 1 Baso % (Auto) 0 1 Neut # (Auto) 5.1 4.9 Lymph # (Auto) 3.5 2.5 [place] # (Auto) 0.7 0.5 Eos # (Auto) 0.2 0.1 Baso # (Auto) 0.0 0.0 Immature Gran # (Auto) 0.04 H 0.03 H Absolute Nucleated RBC 0.00 0.00 Immature Gran % 0 0 Nucleated RBC % 0 0 PT 10.9 INR 1.0 APTT 25.7 Sodium 143 144 Potassium 4.0 4.0 Chloride 108 H 110 H Carbon Dioxide 24.6 23.2 Anion Gap 10 11 BUN 21 16 Creatinine 1.0 0.8 Estim Creat Clear Calc 52.9 L 56.7 L eGFR > 60 > 60 BUN/Creatinine Ratio 21 H 20 Glucose [address] Glu mg/dL 114 Hemoglobin A1c 5.6 Calculated Osmolality 288 289 Calcium 9.9 9.5 Corrected Calcium 9.9 9.5 Phosphorus 3.7 Magnesium 2.2 2.3 Total Bilirubin 0.6 0.8 AST 22 19 ALT 24 20 Alkaline Phosphatase 148 H 129 H Troponin I < 0.020 Total Protein 7.9 7.1 Albumin 4.7 4.2 D Globulin 3.2 2.9 Albumin/Globulin Ratio 1.5 1.4 Triglycerides 115 Cholesterol 133 LDL Cholesterol, Calc 81 HDL Cholesterol 29 L Cholesterol/HDL Ratio 4.6 TSH 0.90 Ur Collection Type Clean Catch Urine Color Colorless A Urine Clarity Clear Urine pH 6.5 Ur Specific [place] 1.012 Urine Protein Negative Urine Glucose (UA) Negative Urine Ketones Negative Urine Blood Negative Urine Nitrite Negative Urine Bilirubin Negative Urine Urobilinogen (Auto) Negative Ur Leukocyte Esterase Negative Urine RBC < 1 Urine WBC 2 Ur Squamous Epith Cells 1 Urine Bacteria None Urine Opiates Screen Negative Urine Fentanyl Screen Negative Ur Barbiturates Screen Negative U Amphetamin/Meth Scrn Negative U Benzodiazepines Scrn Negative U Cocaine Metab Screen Negative U Marijuana (THC) Screen Negative Quality Measures Quality Measures stroke Suspected type of Stroke: Acute Ischemic Tenecteplase given: Reason(s) Tenecteplase not given: Stroke severity too mild (non-disabling) not given Rehab services: PT evaluation ordered and Speech Language Pathology eval ordered VTE Prophylaxis: pharmaceutical Antithrombotic by day 2:: ordered Statin ordered: <75 y/o high intensity dose Anticoagulation ordered for A-fib or flutter (current or hx): not indicated Advance care planning discussed with:: patient Assessment & Plan Assessment Current Active Medications: Generic Name Dose Route Start Last Admin Trade Name Freq PRN Reason Stop Dose Admin Acetaminophen 650 mg 08/21/24 23:33 Acetaminophen 325 Mg Tablet PO 09/20/24 23:32 Q6H PRN Fever >101.5 Acetaminophen 650 mg 08/21/24 23:33 Acetaminophen 325 Mg Tablet PO 09/20/24 23:32 Q6H PRN PAIN SCALE 1-3 (mild Aspirin 81 mg 08/22/24 21:00 Aspirin Ec 81 Mg Tabec PO 09/21/24 20:59 HS AYESHA Atorvastatin Calcium 80 mg 08/22/24 21:00 Atorvastatin Calcium 20 Mg Tablet PO 09/21/24 20:59 HS AYESHA Clopidogrel Bisulfate 75 mg 08/22/24 09:00 08/22/24 08:09 Clopidogrel Bisulfate 75 Mg Tablet PO 09/21/24 08:59 75 mg QDAY AYESHA Administration Heparin Sodium (Porcine) 5,000 unit 08/22/24 06:00 08/22/24 06:26 Heparin Sod Inj 5000 Unit/Ml Vial SC 09/05/24 05:59 5,000 unit Q8HR AYESHA Administration Ondansetron HCl 4 mg 08/21/24 19:49 Ondansetron Inj 2 Mg/Ml Inj 2 Ml IV 09/20/24 19:48 Q4HR PRN NAUSEA OR VOMITING Pantoprazole Sodium 40 mg 08/22/24 09:00 08/22/24 08:09 Pantoprazole 40 Mg Tablet PO 09/21/24 08:59 40 mg QDAY AYESHA Administration Pharmacy Consult 1 each 08/22/24 01:31 Pharmacy To Consult Pneumovacc XX 09/21/24 01:30 PRN PRN CONSULT Plan Assessment and plan: Summary: The patient is a 68-year-old female with significant past medical history of hyperlipidemia presented to ED after developing right-sided facial tingling around 6 PM on 08/21/2024. Due to low NIHSS score of 1, he recommended not to proceed with tPA. Patient admitted for CVA workup #7 mm acute infarct left thalamus #CVA Patient presented with right facial weakness, and tingling; including right leg limping around 6 PM on 08/21/[address] negative for acute hemorrhage, mass effect or midline shift, head/neck CTA revealed no significant neck arterial stenosis or cerebral large vessel arterial occlusion or thrombus. Patient did not receive tPA due to NIHSS score of 1, but during my evaluation NIHSS score was 3 with mild decreased sensation over right face and right lower face drooping; and right lower limb strength of 4/5, and risk out-weights the benefit of giving tPA Received aspirin and clopidogrel 325 mg x 1 and 300 mg x 1 respectively MRI Brain shows 7 mm acute infarct left thalamus Patient's hemoglobin A1c is 5.6, TSH limits 0.9 and lipid panel shows LDL 81, cholesterol 133. 08/22- Patient still have right-sided facial droop, reports improved strength, denies any paresthesias currently. Plan: - Continue on aspirin 81 Mg daily - Continue on clopidogrel 75 Mg daily - Started on atorvastatin 80 Mg daily - Neurologist Dr. Fulton consulted, appreciate reccs - Follow TTE with bubble study - Head of bed elevated to 30 degrees, neurochecks every 4 hourly - Follow PT and speech eval - Continue to monitor closely #Hyperlipidemia Patient reported that she has history of hyperlipidemia - Started on atorvastatin 80 Mg daily - Ordered lipid panel for a.m. labs DVT prophylaxis: Heparin every 8 hours GI prophylaxis: Protonix Diet: Cardiac Lines: Peripheral IV Code status: Full code Case discussed with Attending Dr. Gama and Dr. Kenny PGY2. Brit Bass PGY1 Disclaimer: This note was dictated by speech recognition. Minor errors in superintendent ammunition storage may be present due to voice recognition software.
--- NOTE | 2024-08-22 13:34 | PC.SS ---
SS met with patient and dtr regarding patient's d/c plan.? Pt is alert/oriented.? Pt was admitted for CVA.? Pt confirmed demographic and contact information is correct on facesheet.? Pt resides with .? Pt ambulates independently without assistance or DME.? Pt is ok with all ADLs.? Patient?s pharmacy of choice is [facility] [address].? Pt named her dtr, Margie Rosales, phone# [phone] medical decision maker if she is unable.? Pt requested to update her facesheet and add her dtr, Margie Rosales (remove her sister, Lila Weiner).? ?SS contacted Tereza from patient registration to update patient's facesheet with the correct person to notify.? SS provided verbal options for d/c to home ro SNF.? Patient?s choice is to return home upon d/c.? Pt does not have an advance directive, SS offered, and pt declined.? Pt states not diabetic and is not on dialysis.? Pt states her followed up with PCP was in May 2024.? Pt states she will make a follow up with PCP at [facility].?? D/C plan:? Return home Next of Kin:? Dieter Rosales dtr,? phone# [phone] PCP:? [facility] Address:? Correct on facesheet
--- NOTE | 2024-08-22 14:11 | PC.PT ---
PT eval only. Patient is I with transfers and ambulation without AD.
[2024-08-22] MEDS: ATORVASTATIN CALCIUM 20 MG TABLET 80 MG PO (21:02)
[2024-08-22] MEDS: ASPIRIN EC 81 MG TABEC PO (21:02)
--- NOTE | 2024-08-22 23:33 | ECHO_ITS ---
Transthoracic Echo Report Ht (in): 60 Wt (lb): 140 Exam Location: Echo Lab Status: Inpatient Branding Specialist: JULY Cardozo^^^^ Indications: Procedure Performed: BP: / HR: MEASUREMENTS (Male / Female) Normal Values 2D ECHO LV Diastolic Diameter PLAX 2.9 cm 4.2 - 5.9 / 3.9 - 5.3 cm LV Systolic Diameter PLAX 1.9 cm IVS Diastolic Thickness 1.0 cm 0.6 - 1.0 / 0.6 - 0.9 cm LVPW Diastolic Thickness 1.2 cm 0.6 - 1.0 / 0.6 - 0.9 cm LV Relative Wall Thickness 0.7 LVOT Diameter 1.7 cm Aortic Root Diameter 3.0 cm LA Systolic Diameter LX 2.7 cm 3.0 - 4.0 / 2.7 - 3.8 cm LA Volume Index 32.5 cm?/m? 16 - 28 cm?/m? DOPPLER AV Peak Velocity 171.0 cm/s AV Peak Gradient 11.7 mmHg AV Mean Gradient 6.0 mmHg AV Velocity Time Integral 34.8 cm LVOT Peak Velocity 115.0 cm/s LVOT Peak Gradient 5.3 mmHg LVOT Velocity Time Integral 35.5 cm AV Area Cont Eq vti 2.3 cm? AV Area Cont Eq pk 1.5 cm? MV Area PHT 2.9 cm? MR Peak Velocity 290.0 cm/s MR Peak Gradient 33.6 mmHg Mitral E Point Velocity 59.7 cm/s Mitral A Point Velocity 100.0 cm/s Mitral E to A Ratio 0.6 LV E' Lateral Velocity 7.8 cm/s Mitral E to LV E' Lateral Ratio 7.6 LV E' Septal Velocity 5.7 cm/s Mitral E to LV E' Septal Ratio 10.6 TR Peak Velocity 235.0 cm/s TR Peak Gradient 22.1 mmHg PV Peak Velocity 106.0 cm/s PV Peak Gradient 4.5 mmHg RVOT Peak Velocity 54.7 cm/s FINDINGS Left Ventricle Normal left ventricular size, wall thickness, systolic function with no obvious regional wall motion abnormalities. There is grade I diastolic dysfunction of the left ventricle. The left ventricular ejection fraction is normal, estimated at 55-60%. Right Ventricle The right ventricle is normal in size and systolic function. The estimated right ventricular systolic pressure, 25 mmHg. Left Atrium The left atrium is normal by two-dimensional, color flow and Doppler imaging with no structural abnormalities, no thrombus formation present. Right Atrium The right atrium is normal by two-dimensional imaging, color flow and Doppler imaging with no structural abnormalities, no thrombus formation present. Atrial Septum The interatrial septum appears normal with no evidence of a shunt. Aorta The aorta is normal by two-dimensional, color flow and Doppler interrogation. Mitral Valve Mild mitral regurgitation. Mild mitral annular calcification. Aortic Valve Aortic valve sclerosis. Diffuse calcification of the aortic valve. Trace to mild aortic valve regurgitation. Tricuspid Valve There is mild tricuspid valve regurgitation. Pulmonic Valve Trivial pulmonic valve regurgitation. Vessels The pulmonary artery appears normal. The inferior vena cava pulmonary and hepatic veins appear normal. Pericardium The pericardium is normal by two-dimensional imaging. There is no significant pericardial effusion. CONCLUSIONS Indication: CVA Bubble not performed due to lack of IV access. Consider KAYLEE if high clinical risk of suspicion Normal limits and function with an ejection fraction of 60 to 60%. Stage I diastolic dysfunction. Mild LVH. Normal RV size and function with normal estimated RVSP. Mild TR Mild aortic valve sclerosis without any Stenosis. No pericardial effusion Konrad Toledo (Electronically Signed) Final Date: 22 August 2024 18:39
--- NOTE | 2024-08-22 23:36 | ESPR_ITS ---
Documentation for date of: 08/22/24 Subjective Subjective Interval history: Patient was seen and telemetry today with her family at the bedside. Patient came in with acute onset of right hemiparesthesias. Now it is completely resolved. Denies any headache or dizziness nausea vomiting. Exam - Neurology Vital Signs Temp Pulse Resp BP Pulse Ox O2 Del Method 97.1 F 83 17 121/74 94 L Room Air 08/22/24 20:00 08/22/24 20:00 08/22/24 20:00 08/22/24 20:00 08/22/24 20:00 08/22/24 20:00 Narrative Exam GENERAL APPEARANCE: Well hydrated, well-nourished in no acute distress. HEENT: Normocephalic, atraumatic, extraocular movements intact. Pupils: Equal reacting to light and accommodation NECK: Supple, no JVD or bruits. CARDIOVASULAR: Heart: S1, S2 heard, regular without S3-S4 or murmur no rubs or gallops. LUNGS/CHEST: Clear to auscultation bilaterally. No rails, rhonchi, or wheezing. Normal inspection. ABDOMEN: Soft, nontender, with normal bowel sounds. No pulsatile masses. No rebound, rigidity, or guarding. Normal inspection and palpation. EXTREMITIES: Normal inspection and palpation. No edema, clubbing or cyanosis. SKIN: Warm and dry without rashes. Normal inspection. MUSCULOSKELETAL: No cervical, thoracic, lumbar or midline bony tenderness. Normal inspection. NEURO: Alert, awake and oriented x3. Cranial nerves: II through XII grossly intact. Speech and language: Normal with no dysarthria or dysphasia. Motor system: Tone and bulk: Normal: Strength: 5 out of 5 in all 4 extremities; No pronator drift noted. Deep tendon reflexes: 2+ bilaterally symmetrical. Plantar reflex: Downgoing bilaterally. Sensory system: Intact to all modalities of sensation bilaterally. Coordination: Intact to oqshue-bulo-kxpiq and gqev-isyd-wvcw test bilaterally. No ataxia, no dysmetria, or dysdiadochokinesia noted. No intention tremors noted. Gait: Not tested, no signs of meningeal irritation noted. PSYCHIATRIC: Normal mood and affect. Objective Labs 08/22/24 05:00 08/22/24 05:00 Labs: Laboratory Results - last 24 hr 08/22/24 05:00 WBC 8.1 RBC 4.60 Hgb 13.8 Hct 40.4 MCV 88 MCH 30.0 MCHC 34.2 RDW Std Deviation 41.1 Plt Count 201 Neut % (Auto) 61 Lymph % (Auto) 31 [place] % (Auto) 7 Eos % (Auto) 1 Baso % (Auto) 1 Neut # (Auto) 4.9 Lymph # (Auto) 2.5 [place] # (Auto) 0.5 Eos # (Auto) 0.1 Baso # (Auto) 0.0 Immature Gran # (Auto) 0.03 H Absolute Nucleated RBC 0.00 Immature Gran % 0 Nucleated RBC % 0 Sodium 144 Potassium 4.0 Chloride 110 H Carbon Dioxide 23.2 Anion Gap 11 BUN 16 Creatinine 0.8 Estim Creat Clear Calc 56.7 L eGFR > 60 BUN/Creatinine Ratio [address] Glu mg/dL 114 Hemoglobin A1c 5.6 Calculated Osmolality 289 Calcium 9.5 Corrected Calcium 9.5 Phosphorus 3.7 Magnesium 2.3 Total Bilirubin 0.8 AST 19 ALT 20 Alkaline Phosphatase 129 H Total Protein 7.1 Albumin 4.2 D Globulin 2.9 Albumin/Globulin Ratio 1.4 Triglycerides 115 Cholesterol 133 LDL Cholesterol, Calc 81 HDL Cholesterol 29 L Cholesterol/HDL Ratio 4.6 TSH 0.90 Assessment & Plan Assessment and plan (1) Ischemic cerebrovascular accident (CVA): Status: Acute Assessment and plan: MRI brain showed acute infarction in the left thalamus. Patient came in with sudden onset of right hemiparesthesias. Echocardiogram: Consider KAYLEE if high clinical risk of suspicion Normal limits and function with an ejection fraction of 60 to 60%. Stage I diastolic dysfunction. Mild LVH. Normal RV size and function with normal estimated RVSP. Mild TR Mild aortic valve sclerosis without any Stenosis. No pericardial effusion Continue with aspirin 81 mg, Plavix 75 mg for 21 days followed by Plavix alone along with statin.
[2024-08-23] VITALS: BP 124/78; PULSE 60; PULSE 61; RESP 19; TEMP 35.9; O2SAT 94
[2024-08-23 04:00] VITALS: BP 120/67; PULSE 60; PULSE 67; RESP 13; TEMP 35.8; O2SAT 93
[2024-08-23 05:26] LABS: Basophils % (Auto) 0 % (0-2.5); Eosinophils # (Auto) 0.2 Thou/mm3 (0.0-0.5); Eosinophils % (Auto) 3 % (0-10); Hemoglobin 14.3 g/dL (12.0-16.0); Immature Granulocytes % (Auto) 0 % (0-0); Immature Granulocytes Auto 0.03 Thou/mm3 (0.00-0.00); Lymphocytes # (Auto) 3.1 Thou/mm3 (1.0-4.8); Lymphocytes % (Auto) 41 % (10-50); Mean Corpuscular HGB Conc 33.3 g/dl (31.0-37.0); Mean Corpuscular Hemoglobin 29.7 pg (25.0-35.0); Mean Corpuscular Volume 89 fL (80-100); Monocytes # (Auto) 0.6 Thou/mm3 (0.0-0.8); Monocytes % (Auto) 7 % (0-12); Neutrophils # (Auto) 3.6 Thou/mm3 (1.8-7.7); Neutrophils % (Auto) 48 % (37-80); Nucleated Red Blood Cell % 0 /100 WBC (0); Platelet Count 185 Thou/mm3 (140-440); RDW Standard Deviation 42.3 fL (36.4-46.3); Red Blood Count 4.81 Miln/mm3 (4.00-5.20); White Blood Count 7.6 Thou/mm3 (3.6-11.0)
[2024-08-23] MEDS: HEPARIN SOD INJ 5000 UNIT/ML VIAL SC (05:45)
[2024-08-23 05:56] LABS: Alanine Aminotransferase 19 U/L (10-49); Albumin, Serum 4.2 gm/dL (3.4-4.8); Albumin/Globulin Ratio 1.4 (1.2-2.2); Alkaline Phosphatase 128 U/L (46-116); Anion Gap 10 (7-16); Aspartate Amino Transferase 21 U/L (0-34); BUN/Creatinine Ratio 17 Ratio (12-20); Bilirubin,Total 0.8 mg/dL (0.3-1.2); Blood Urea Nitrogen 15 mg/dL (9-23); Calcium 9.2 mg/dL (8.3-10.6); Calcium (Corrected) 9.2 mg/dL (8.5-10.1); Carbon Dioxide 22.1 mMol/L (20.0-31.0); Chloride 109 mMol/L (98-107); Creatinine (Component) 0.9 mg/dL (0.6-1.3); Globulin 2.9 gm/dL (2.3-3.5); Glucose 102 mg/dL (74-106); Magnesium 2.5 mg/dL (1.6-2.6); Osmolality,Calculated 282 (275-295); Phosphorous 4.1 mg/dL (2.4-5.1); Potassium 4.2 mMol/L (3.4-5.1); Sodium 141 mMol/L (136-145); Total Protein 7.1 gm/dL (5.7-8.2); eGFR > 60 See Note
[2024-08-23 06:00] VITALS: BMI 26.9
[2024-08-23 08:00] VITALS: BP 126/86; PULSE 78; PULSE 84; RESP 19; TEMP 36.3; O2SAT 97
[2024-08-23] MEDS: PANTOPRAZOLE 40 MG TABLET PO (08:32)
[2024-08-23] MEDS: CLOPIDOGREL BISULFATE 75 MG TABLET PO (08:32)
--- NOTE | 2024-08-23 10:07 | ESDS_ITS ---
<Statement entered by Pedro Kenny MD - 08/24/24 07:23> I discussed with and supervised the corporate intern physician involved in the care of this patient. Patient assessment and plan was discussed with entire medicine team, including my attending. I agree with the assessment and plan as documented by corporate intern doctor. Patient care was discussed with my attending physician Dr. Brianna Kenny, PGY-2 Planned Discharge Date 08/23/24 DS: Providers Provider Date of admission: 08/21/24 23:33 Primary care physician: Physician Eryn Primary/Family Admitting Provider: Chuck Haynes MD Attending Provider on Admission: Anup Maxwell MD Consults: 08/21/24 19:49 Consult to Neurology / Tele-Neurology Routine Comment: Consulting Provider: [facility] 08/21/24 23:41 Referral Physical Therapy Stat Comment: Physician Instructions: Referral Speech Therapy Stat Comment: 08/22/24 03:56 Consult to Neurology / Tele-Neurology Routine Comment: TIA vs CVA Consulting Provider: Casimiro Fulton Attending Provider on DC: Joseph Reed MD Discharging Provider: Joseph Reed MD Anticipated date of discharge: 08/23/24 DS: Diagnosis Problem List Completed Was Problem List Reviewed/Reconciled?: Yes Hospital Course Hospital Course Hospital course: Hospital course: Ms. Rosales is a 68-year-old female with past medical history of hyperlipidemia who presented to [facility] emergency department on with a chief complaint of right-sided facial weaknes, right-sided droop and drooling with generalized right-sided weakness. CT scan of the head was negative for acute hemorrhage, CTA showed no significant neck arterial stenosis or large vessel occlusion or thrombus. Patient's NIHSS score was 1 on presentation, did not receive tPA teleneurology was consulted on the case and recommended admission to med/tele and further workup for stroke. Patient was started on aspirin and Plavix with high-dose atorvastatin, MRI of brain showed 7 mm acute infarct left thalamus, patient had TTE done which showed normal ejection fraction 60 to 65%, stage I diastolic dysfunction. Bubble study was not performed hence cardiology was consulted will follow outpatient for further stroke risk stratification. Physical therapy evaluated patient, patient has no physical therapy requirements currently. Patient will be discharged on both aspirin and Plavix, patient to follow-up with neurology in 2 weeks, patient to discontinue aspirin after 21 days continue Plavix and high-dose statin. Further plan is to discharge patient home and follow-up with primary care physician in 1 week, follow-up with outpatient neurology and cardiology for further workup. Patient is stable for discharge patient responded well to hospital treatment. Discharge diagnosis: #7 mm acute infarct left thalamus #Cerebrovascular accident #Diastolic dysfunction, stage I #Hyperlipidemia Case discussed with Attending Dr. Rede and Dr. Kenny PGY2. Brit Bass PGY1 Disclaimer: This note was dictated by speech recognition. Minor errors in stone rubber may be present due to voice recognition software. Status at Discharge Functional status at discharge: independent ambulation Overall status at discharge: patient is progressing back to baseline Time Spent with Patient Time attestation: Total time spent providing and/or coordinating discharge services: Greater than 35 minutes Time spent: Greater than 30 minutes Exam Vital Signs Temp Pulse Resp BP Pulse Ox O2 Del Method 97.3 F 84 19 126/86 H 97 Room Air 08/23/24 08:00 08/23/24 08:00 08/23/24 08:00 08/23/24 08:00 08/23/24 08:00 08/23/24 08:00 Narrative Exam General: Elderly cooperative female, no acute distress, Alert and Oriented x 3 HEENT: Moist mucous membranes, oropharynx clear Neck: Supple, No masses, No JVD CVS: S1S2 Regular rate and rhythm, No murmurs, rubs or gallops Lungs: Clear to auscultation with no accessory use, no wheeze no rhonchi Abd: Soft, NT/ND, +BS, no organomegaly Ext: No edema, warm and well perfused Skin: No rash Neuro: Alert and oriented x 3, mild right-sided facial droop, patient able to move all extremities Psych: Appropriate mood and affect Discharge Plan Plan Patient Disposition: HOME (Self Care) Disposition Comment: Home Patient condition on transfer: Stable Care Plan Goals: Continue Aspirin and Plavix for 21 days until September 13, 2024. After September 13, 2024 stop aspirin and continue Plavix. Continue atorvastatin 80 mg at bedtime every day Follow-up outpatient with primary care physician in 1 week. Follow-up outpatient with a neurologist Dr. Fulton in 2 weeks. Obtain referral for cardiology and follow-up outpatient with a lithograph press operator. Return to emergency department if symptoms worsen. Prescriptions/Referrals Prescriptions/Med Rec: New clopidogrel 75 mg Tablet 75 mg PO QDAY 30 Days Qty: 30 1RF aspirin [Ecotrin Low Strength] 81 mg Tablet,Delayed Release (Dr/Ec) 81 mg PO HS 21 Days Qty: 21 0RF atorvastatin [Lipitor] 80 mg tablet 80 mg PO QPM Qty: 30 1RF Discontinued lovastatin See Rx Instructions PO QDAY Rx Instructions: 40 orally daily; Referrals: Konrad Toledo MD [Physician] - No Primary/Family,Physician [Primary Care Provider] - Casimiro Fulton MD [Physician] - Patient/Caregiver Discharge Instructions Discharge Activity: as per physical therapy and activity as tolerated Other Discharge Activity Instructions:: Continue Aspirin and Plavix for 21 days until September 13, 2024. After September 13, 2024 stop aspirin and continue Plavix. Continue atorvastatin 80 mg at bedtime every day Follow-up outpatient with primary care physician in 1 week. Follow-up outpatient with a neurologist Dr. Fulton in 2 weeks. Obtain referral for cardiology and follow-up outpatient with a lithograph press operator. Return to emergency department if symptoms worsen. Education Materials: Discharge Instructions for Stroke, Risk Factors for Stroke, Healthy Lifestyle to Prevent ... Print Language: Honduran Stand Alone Forms: [employer] Award Info., Patient Portal Info Letter Discharge Order Discharge Orders: Discharge (Routine); Ordered 08/23/24 Ordered By: Brit Bass Quality Discharge Quality Measures VTE prophylaxis and stroke Statin ordered >75 y/o:moderate or high intensity dose on DC: n/a Statin ordered <75 y/o: high intensity dose on DC: yes Statin not ordered due to:: not indicated (Statin was ordered) Anticoagulation ordered for A-fib or flutter (current or hx): not indicated Antithrombotic ordered on DC: ordered Attestestation Attestation I reviewed labs, imaging, EKG, home medications and prior available records. Face to face evaluation was performed by me. I have personally examined the patient and discussed assessment and plan with the IM team. I reviewed the resident note and agree with the plan with exceptions as below. Acute CVA, 7 mm left thalamus Right-sided numbness Continue aspirin, Plavix, and atorvastatin Echocardiogram showed EF of 60% Followed by PT: No additional PT needed Discussed with neurology: Okay to discharge. Follow-up with neurology in 2 weeks Time spent is 40 minutes. More than 50% of the time was spent on patient education and coordination of care.
[2024-08-23 12:00] VITALS: BP 111/66; PULSE 58; PULSE 72; RESP 17; TEMP 36.6; O2SAT 96
--- NOTE | 2024-08-23 13:11 | PD.RESCONSUL ---
HPI Data of Consult Requesting Physician: Konrad Toledo MD Admitting Provider: Chuck Haynes MD Attending Provider: Konrad Toledo MD Primary Care Provider: Physician No Primary/Family Consult Narrative Reason for consult: New stroke History of present illness: Patient is a 68-year-old Telugu-speaking female with past medical history of hyperlipidemia who presented to the ED after developing right-sided facial tingling and right leg weakness around 6 PM on 08/21/2024. Patient was brought by her daughter, who reported that the patient started limping on her right leg. She denied any headache, chest pain, SOB, abdominal pain, any changes in bowel or bladder habits, nausea or vomiting, fever or chills, and any blurry vision. The patient is not on any blood thinners. In the ED her vitals were significant for blood pressure 159/83, with other vitals WNL. CBC WNL, CMP revealed chloride 108, BUN 21, blood sugar 111, UA and U tox negative, EKG revealed sinus rhythm with short VA interval, head CT negative for acute hemorrhage, mass effect or midline shift, head/neck CTA revealed no significant neck arterial stenosis or cerebral large vessel arterial occlusion or thrombus. Teleneurology consultation was done and NIHSS score was 1 because of mild decrease in right-sided facial sensation. They recommended aspirin and Plavix 325 mg and 300 mg respectively and starting on atorvastatin. Due to low NIHSS score of 1, he recommended not to proceed with tPA. Cardiology was consulted for stroke workup, echo obtained while in hospital unable to obtain bubble study. 08/23/2024: At this time patient reported resolution of her symptoms, denies difficulty speaking, walking, or eating. BP controlled in normal range, 24-hour telemetry reviewed showing sinus rhythm in the 70-80 range. cc:: cc: Konrad Toledo MD Past Medical History Past Medical History Comments PMH COMMENT: PMH: As mentioned above SHX: Unremarkable Family history: Unremarkable Social history: Social drinker, denies smoking or any illicit drug use Medications: Atorvastatin Allergies: No known allergies Exam Vital Signs Temp Pulse Resp BP Pulse Ox O2 Del Method 97.8 F 58 L 17 111/66 96 Room Air 08/23/24 12:00 08/23/24 12:00 08/23/24 12:00 08/23/24 12:00 08/23/24 12:00 08/23/24 12:00 Narrative Exam Physical Exam General: Awake and in no acute distress. Conversational and non-toxic appearing. HEENT: Normocephalic, atraumatic, mucous membranes moist. Heart: Regular rate and rhythm, normal S1 and S2, no murmurs. Lungs: Clear to auscultation with no wheezing or crackles. Abdomen: Soft, nondistended, nontender, positive bowel sounds. ?No guarding or rebound tenderness. Neurologic: Alert and oriented x3, no gross neurological deficit, and patient able to move all 4 extremities. Extremities: No edema. Skin: No rash or ecchymoses. Results Labs 08/23/24 05:19 08/23/24 05:19 Labs: Short CBC 08/23/24 Range/Units 05:19 WBC 7.6 (3.6-11.0) Thou/mm3 Hgb 14.3 (12.0-16.0) g/dL Hct 43.0 (36.0-46.0) % Plt Count 185 (140-440) Thou/mm3 BMP 08/23/24 05:19 Sodium 141 Potassium 4.2 Chloride 109 H Carbon Dioxide 22.1 BUN 15 Creatinine 0.9 Glucose 102 Calcium 9.2 Liver Function 08/23/24 Range/Units 05:19 Total Bilirubin 0.8 (0.3-1.2) mg/dL AST 21 (0-34) U/L ALT 19 (10-49) U/L Alkaline Phosphatase 128 H (46-116) U/L Albumin 4.2 (3.4-4.8) gm/dL Quality Measures Quality Measures stroke Suspected type of Stroke: Acute Ischemic Tenecteplase given: Reason(s) Tenecteplase not given: Stroke severity too mild (non-disabling) not given Rehab services: PT evaluation ordered and Speech Language Pathology eval ordered VTE Prophylaxis: pharmaceutical Antithrombotic by day 2:: not indicated (describe) Statin ordered: >75 y/o moderate or high intensity dose Anticoagulation ordered for A-fib or flutter (current or hx): not indicated Advance care planning discussed with:: patient Medications Home Medications and Allergies Allergies Allergy/AdvReac Type Severity Reaction Status Date / Time No Known Allergies Allergy Verified 08/22/24 01:28 Visit Medications Discontinued Medications Acetaminophen (Acetaminophen 325 Mg Tablet) 650 mg PO Q6H PRN PRN Reason: Fever >101.5 Stop: 09/20/24 23:32 Acetaminophen (Acetaminophen 325 Mg Tablet) 650 mg PO Q6H PRN PRN Reason: PAIN SCALE 1-3 (mild Stop: 09/20/24 23:32 Aspirin (Aspirin 325 Mg Tablet) 325 mg PO X1 ONE Stop: 08/21/24 21:24 Last Admin: 08/21/24 21:44 Dose: 325 mg Aspirin (Aspirin Ec 81 Mg Tabec) 81 mg PO [facility] Stop: 09/21/24 20:59 Last Admin: 08/22/24 21:02 Dose: 81 mg Atorvastatin Calcium (Atorvastatin Calcium 20 Mg Tablet) 80 mg PO [facility] Stop: 09/21/24 20:59 Last Admin: 08/22/24 21:02 Dose: 80 mg Clopidogrel Bisulfate (Clopidogrel Bisulfate 75 Mg Tablet) 75 mg PO X1 ONE Stop: 08/21/24 21:24 Last Admin: 08/21/24 21:44 Dose: 75 mg Clopidogrel Bisulfate (Clopidogrel Bisulfate 75 Mg Tablet) 225 mg PO X1 ONE Stop: 08/21/24 23:40 Last Admin: 08/22/24 00:29 Dose: 225 mg Clopidogrel Bisulfate (Clopidogrel Bisulfate 75 Mg Tablet) 75 mg PO QDAY [facility] Stop: 09/21/24 08:59 Last Admin: 08/23/24 08:32 Dose: 75 mg Heparin Sodium (Porcine) (Heparin Sod Inj 5000 Unit/Ml Vial) 5,000 unit SC Q8HR [facility] Stop: 09/05/24 05:59 Last Admin: 08/23/24 05:45 Dose: 5,000 unit Ondansetron HCl (Ondansetron Inj 2 Mg/Ml Inj 2 Ml) 4 mg IV Q4HR PRN PRN Reason: NAUSEA OR VOMITING Stop: 09/20/24 19:48 Pantoprazole Sodium (Pantoprazole 40 Mg Tablet) 40 mg PO QDAY [facility] Stop: 09/21/24 08:59 Last Admin: 08/23/24 08:32 Dose: 40 mg Pharmacy Consult (Pharmacy To Consult Pneumovacc) 1 each XX PRN PRN PRN Reason: CONSULT Stop: 09/21/24 01:30 Pneumococcal Polyvalent Vaccine (Pneumoc 20-Yue Conj-Dip Crm/Pf 0.5 Ml Syringe) 0.5 ml IMi .ONCE ONE Stop: 08/22/24 07:01 Assessment & Plan Plan 68-year-old Telugu-speaking female with past medical history of hyperlipidemia who presented to the ED after developing right-sided facial tingling and right leg weakness around 6 PM on 08/21/2024. Due to low NIHSS score of 1, TeleNeuro recommended not to proceed with tPA. Patient was admitted for CVA workup. Cardiology was consulted for further cardiac workup to investigate for any underlying etiology of stroke. #Acute ischemic stroke, 7 mm acute infarct left thalamus Patient presented with right facial weakness, and tingling; including right leg limping around 6 PM on 08/21/[address] negative for acute hemorrhage, mass effect or midline shift, head/neck CTA revealed no significant neck arterial stenosis or cerebral large vessel arterial occlusion or thrombus. Patient did not receive tPA due to NIHSS score of 1, but during my evaluation NIHSS score was 3 with mild decreased sensation over right face and right lower face drooping; and right lower limb strength of 4/5, and risk out-weights the benefit of giving tPA Received aspirin and clopidogrel 325 mg x 1 and 300 mg x 1 respectively MRI Brain shows 7 mm acute infarct left thalamus Patient's hemoglobin A1c is 5.6, TSH limits 0.9 and lipid panel shows LDL 81, cholesterol 133. 08/22 Patient still has right-sided facial droop, reports improved strength, denies any paresthesias currently. 08/22 TTE: Bubble not performed due to lack of IV access. Consider KAYLEE if high clinical risk of suspicion Normal limits and function with an ejection fraction of 60 to 60%. Stage I diastolic dysfunction. Mild LVH. Normal RV size and function with normal estimated RVSP. Mild TR Mild aortic valve sclerosis without any Stenosis. No pericardial effusion Plan: - Maintain control of modifiable risk factors including cholesterol, BP, A1c (5.6) - Continue on aspirin 81 mg daily - Continue on clopidogrel 75 mg daily - Continue on atorvastatin 80 mg daily - Neurologist Dr. Fulton - Follow up in Cardiology clinic with Dr. Toledo for KAYLEE as TTE unable to have bubble study completed, information for clinic including phone and address given #Hyperlipidemia Patient reported that she has history of hyperlipidemia. Lipid panel showed TC 133, TG 115, LDL 81, HDL 29. - Continue on atorvastatin 80 mg daily Patient was discussed with the Cardiology attending, Dr. Toledo. Thank you for allowing us to participate in the care of this patient. Itzel Elise, PGY-2 Attending Provider Attestation/Addendum I have personally seen and examined the patient separately on the above date of service and discussed the plan of care with the resident. I reviewed the resident Dr. Mary Elise consultation progress note and agree with the resident findings and plan in the note above and have also edited the documentation to reflect my findings and plan. 68-year-old female with a past medical history of hyperlipidemia presented to the emergency department for right-sided facial tingling as well as right leg weakness around 6 PM on 08/21/2024. Patient was noted to be limping on her right leg which was noticed by the daughter and brought to the emergency department patient denied any kind of chest pain chest pressure or shortness of breath or orthopnea or dizziness or syncope or fall. Denied any kind of abdominal complaints. Patient was admitted for further evaluation of stroke head CT was negative without any acute hemorrhage mass or midline affect. Head next CTA did not show any acute vessel occlusion. Teleneurology was consulted patient was started on aspirin and Plavix and NIHSS score was only 1 and was recommended no tPA. Echo study was performed which showed acute ischemic stroke with 7 mm acute infarct in the left thalamus. Cardio was consulted for further evaluation. Assessment and plan: 1. Acute ischemic stroke 2. Hyperlipidemia 3. Overweight As noted above patient did present with right facial weakness as well as some tingling in right leg limping on 08/21/2024 and admitted for stroke eval and MRI of the brain did show 7 mm acute infarct of the left thalamus. As part of the stroke workup patient did have an echocardiogram which was performed on 08/22/2024 which showed normal LV and RV size and function with stage I diastolic dysfunction. Mild LVH and mild aortic valve sclerosis without stenosis. Bubble study was not performed due to lack of IV access. Recommended KAYLEE for further evaluation of the stroke as the bubble study was not completed and unfortunately there is no KAYLEE probe in the hospital and will plan to schedule the patient as outpatient for the KAYLEE to rule out any PFO or ASD or LA or MATT thrombus rather than repeat echocardiogram. Lipid profile reviewed and showed total cholesterol of 133, TG of 115, LDL of 81 and HDL of 29. A1c was 5.6% in TSH was normal at 0.9. Patient recommended to follow-up with me in the clinic in 7 days. Management of rest of the medical conditions as per primary team and other consultants. Thank you for the consult and allowing me to participate in the care of the patient. Cardiology will continue to follow. Konrad Toledo M.D. Interventional Cardiology
== END 2024-08-23 13:08 | disposition home or self-care (01) | DRG 65 ==
LOC: SERX 22:41 → SERHOLD 08-22 06:23 → S2NX 08-22 06:23
PROVIDERS: Physician Assistant; Admitting Provider Student in an Organized Health Care Education/Training Program; Emergency Provider Emergency Medicine; Visit Provider Internal Medicine Cardiovascular Disease
DX: I63.9 Cerebral infarction, unspecified (principal); G81.91 Hemiplegia, unspecified affecting right dominant side; E78.5 Hyperlipidemia, unspecified; R29.810 Facial weakness; R29.703 NIHSS score 3; I35.8 Other nonrheumatic aortic valve disorders; E66.3 Overweight; Z79.82 Long term (current) use of aspirin; Z79.899 Other long term (current) drug therapy
CPT/HCPCS: 36415; 70450; 70496; 70498; 70544; 80053; 80061; 80307; 81001; 83036; 83735; 84100; 84443; 84484; 85025; 85610; 85730; 87086; 92610; 93005; 93306; 97162; 99291; A4649; J1643; Q9967; A9270

== ENCOUNTER 2024-10-02 09:48 | Outpatient (CLI) | payer MEDICARE, SELFPAY ==
[2024-10-01 15:22] VITALS: BMI 28.5
[2024-10-02] VITALS (13 sets, daily range): BP systolic 105–208; BP diastolic 61–93; PULSE 60–100; RESP 15–22; TEMP 36.7–37.1; O2SAT 91–98
--- NOTE | 2024-10-02 11:01 | ECHO_ITS ---
Transesophageal Echo Report Ht (in): 60 Wt (lb): 146 Exam Location: [facility] Status: Outpatient Apartment Maintenance Manager: JULY Cardozo^^^^ Indications: Procedure Performed: BP: / HR: Medications 2 Versed 50 fentanyl FINDINGS Left Ventricle Normal left ventricular size, wall thickness, systolic function with no obvious regional wall motion abnormalities. Normal left ventricular diastolic filling pattern for age. The ejection fraction is visually estimated at 55-60 %. Right Ventricle The right ventricle is normal in size and systolic function. The estimated right ventricular systolic pressure, 25 mmHg. Left Atrium The left atrium is normal by two-dimensional, color flow and Doppler imaging with no structural abnormalities, no thrombus formation present. Right Atrium The right atrium is normal by two-dimensional imaging, color flow and Doppler imaging with no structural abnormalities, no thrombus formation present. Atrial Appendages The left atrial appendage appears normal with no evidence for thrombus. Atrial Septum The interatrial septum is normal to color flow Doppler and agitated saline imaging. Aorta The aorta is normal by two-dimensional, color flow and Doppler interrogation. Mitral Valve Mild mitral regurgitation. Aortic Valve Trace to mild aortic valve regurgitation. Tricuspid Valve There is trace tricuspid valve regurgitation. Pulmonic Valve The pulmonic valve is normal by two-dimensional, color flow and Doppler interrogation. There is no significant pulmonic valve regurgitation. Vessels The pulmonary artery appears normal. The inferior vena cava pulmonary and hepatic veins appear normal. Pericardium The pericardium is normal by two-dimensional imaging. There is no significant pericardial effusion. CONCLUSIONS Indication: Stroke-rule out cardioembolic source No evidence of LA or MATT thrombus. Bubble study negative for any PFO or ASD. Normal LV size and function with an estimated EF of 55 to 60% Normal RV size and function. Biatrial dilatation noted left greater than right. Mild MR and TR. Trace AI. No pericardial effusion Konrad Toledo (Electronically Signed) Final Date: 02 Oct 2024 21:45
[2024-10-02] MEDS: SODIUM CHLORIDE 0.9% 500 ML 500 ML 250 ML IV (12:30)
[2024-10-02] MEDS: BENZOCAINE 20% (Hurricaine) SPRAY 1 DOSE TOP (12:34)
[2024-10-02] MEDS: fentaNYL CIT INJ 50 mCg/ML AMP 2ML 100 MCG IV (12:36)
[2024-10-02] MEDS: MIDAZOLAM INJ 1 MG/ML VIAL 2 ML 4 MG IV (12:36)
== END 2024-10-02 14:45 | disposition home or self-care (01) ==
PROVIDERS: PCP Family Medicine; Referring Provider Internal Medicine Cardiovascular Disease; Visit Provider Internal Medicine Cardiovascular Disease
PROC: (CPT 93312; principal; 2024-10-02 11:30)
DX: I08.3 Combined rheumatic disorders of mitral, aortic and tricuspid valves (principal); E78.5 Hyperlipidemia, unspecified; R20.0 Anesthesia of skin; Z86.73 Personal history of transient ischemic attack (TIA), and cerebral infarction without residual deficits
CPT/HCPCS: 93312; J2250; J3010; J7040; A9270